=== PATIENT | female | born 2000 | race Hispanic/Latino ===

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

== ENCOUNTER 2022-02-24 19:23 | Emergency (ER) | payer SELFPAY ==
[2022-02-24] MEDS ORDERED: MORPHINE 4 MG/1 ML INJ IV ONE (19:46)
[2022-02-24] MEDS ORDERED: ONDANSETRON 4 MG/2 ML INJ IV ONE (19:46)
--- NOTE | 2022-02-24 19:49 | Emergency Department Report ---
ED General Adult HPI - General Chief complaint: Abdominal Pain Stated complaint: ABD PAIN Time Seen by Provider: 02/24/22 19:38 Source: patient, EMS Mode of arrival: Stretcher Limitations: No Limitations - History of Present Illness Initial comments: Patient presents with complaints of bilateral lower abdominal pain, sharp, radiating to her lower back, /, not worsened or relieved by anything. Endorses nausea, denies vomiting. Last BM was today and formed. Endorses flatulence. Denies dysuria, frequency, urgency. Endorses vaginal bleeding. Denies discharge. - Related Data Previous Rx's Medication Instructions Recorded Last Taken Type Ondansetron [Zofran Odt] 4 mg PO Q8H PRN #10 tab.rapdis 09/29/17 Unknown Rx Ibuprofen 400 mg PO Q6HR PRN #30 tablet 04/21/18 Unknown Rx Ondansetron [Zofran Odt] 4 mg PO Q8HR PRN #20 tab.rapdis 04/21/18 Unknown Rx Acetaminophen/Codeine [Tylenol 1 tab PO Q6H PRN 3 Days #12 tab 02/24/22 Unknown Rx /Codeine # 3 tab] Ciprofloxacin HCl 1 tab PO BID 7 Days #14 tab 02/24/22 Unknown Rx Metoclopramide [Reglan] 10 mg PO QID PRN #30 tablet 02/24/22 Unknown Rx Allergies Allergy/AdvReac Type Severity Reaction Status Date / Time Penicillins Allergy Hives Verified 02/24/22 19:28 ED Review of Systems ROS: Stated complaint: ABD PAIN Other details as noted in HPI Comment: All other systems reviewed and negative Constitutional: denies: chills, fever ED Past Medical Hx - Past Medical History Hx Diabetes: No Hx Renal Disease: No Hx Sickle Cell Disease: No Hx Seizures: No Hx Asthma: Yes Hx HIV: No - Social History Smoking Status: Never Smoker Substance Use Type: None - Medications Home Medications: Home Medications Medication Instructions Recorded Confirmed Last Taken Type Ondansetron [Zofran Odt] 4 mg PO Q8H PRN #10 tab.rapdis 09/29/17 Unknown Rx Ibuprofen 400 mg PO Q6HR PRN #30 tablet 04/21/18 Unknown Rx Ondansetron [Zofran Odt] 4 mg PO Q8HR PRN #20 tab.rapdis 04/21/18 Unknown Rx Acetaminophen/Codeine [Tylenol 1 tab PO Q6H PRN 3 Days #12 tab 02/24/22 Unknown Rx /Codeine # 3 tab] Ciprofloxacin HCl 1 tab PO BID 7 Days #14 tab 02/24/22 Unknown Rx Metoclopramide [Reglan] 10 mg PO QID PRN #30 tablet 02/24/22 Unknown Rx ED Physical Exam - General Limitations: No Limitations General appearance: alert, in no apparent distress - Head Head exam: Present: atraumatic, normocephalic - Eye Eye exam: Present: PERRL, EOMI - ENT ENT exam: Present: mucous membranes moist, other (airway patent) - Neck Neck exam: Present: other (supple; no JVD) - Respiratory Respiratory exam: Present: other (good air entry, nml I:E, CTAB, no use of GAVINO) - Cardiovascular Cardiovascular Exam: Present: regular rate. Absent: rubs, gallop - GI/Abdominal GI/Abdominal exam: Present: soft, normal bowel sounds, other (tender to palpation in RLQW, LLQ, suprapubic region; no rebound tenderness or involuntary guarding). Absent: distended - Extremities Exam Extremities exam: Present: full ROM. Absent: tenderness - Back Exam Back exam: Present: full ROM. Absent: CVA tenderness (R), CVA tenderness (L) - Neurological Exam Neurological exam: Present: alert, oriented X3, CN II-XII intact. Absent: motor sensory deficit - Skin Skin exam: Present: warm, normal color ED Course Vital Signs 02/24/22 02/24/22 19:25 20:27 Temperature 98 F 98.9 F Pulse Rate 83 60 Respiratory 18 18 Rate Blood Pressure 107/61 Blood Pressure 110/66 [Left] O2 Sat by Pulse 100 100 Oximetry ED Medical Decision Making - Lab Data Result diagrams: 02/24/22 20:05 02/24/22 20:05 Laboratory Tests 02/24/22 02/24/22 02/24/22 20:05 20:05 20:05 WBC 17.2 H RBC 4.35 Hgb 12.7 Hct 37.7 MCV 87 MCH 29 MCHC 34 RDW 15.3 H Plt Count 217 Lymph % (Auto) 8.9 L [place] % (Auto) 5.0 Eos % (Auto) 0.6 Baso % (Auto) 0.4 Lymph # (Auto) 1.5 [place] # (Auto) 0.9 H Eos # (Auto) 0.1 Baso # (Auto) 0.1 Seg Neutrophils % 85.1 H Seg Neutrophils # 14.6 H Sodium 140 Potassium 3.5 L Chloride 109.1 H Carbon Dioxide 19 L Anion Gap 15 BUN 7 Creatinine 0.5 L Estimated GFR > 60 BUN/Creatinine Ratio 14 Glucose 139 H Calcium 9.0 Total Bilirubin 0.20 AST 9 ALT 8 Alkaline Phosphatase 83 Total Protein 6.8 Albumin 4.2 Albumin/Globulin Ratio 1.6 Lipase 20 HCG, Qual Negative Urine Color Urine Turbidity Urine pH Ur Specific [place] Urine Protein Urine Glucose (UA) Urine Ketones Urine Blood Urine Nitrite Urine Bilirubin Urine Urobilinogen Ur Leukocyte Esterase Urine WBC (Auto) Urine RBC (Auto) U Epithel Cells (Auto) Urine Mucus Urine HCG, Qual 02/24/22 20:32 WBC RBC Hgb Hct MCV MCH MCHC RDW Plt Count Lymph % (Auto) [place] % (Auto) Eos % (Auto) Baso % (Auto) Lymph # (Auto) [place] # (Auto) Eos # (Auto) Baso # (Auto) Seg Neutrophils % Seg Neutrophils # Sodium Potassium Chloride Carbon Dioxide Anion Gap BUN Creatinine Estimated GFR BUN/Creatinine Ratio Glucose Calcium Total Bilirubin AST ALT Alkaline Phosphatase Total Protein Albumin Albumin/Globulin Ratio Lipase HCG, Qual Urine Color Yellow Urine Turbidity Slightly-cloudy Urine pH 7.0 Ur Specific [place] 1.017 Urine Protein 30 mg/dl Urine Glucose (UA) Neg Urine Ketones 20 Urine Blood Lg Urine Nitrite Neg Urine Bilirubin Neg Urine Urobilinogen < 2.0 Ur Leukocyte Esterase Tr Urine WBC (Auto) 24.0 H Urine RBC (Auto) > 182.0 U Epithel Cells (Auto) 8.0 Urine Mucus Few Urine HCG, Qual Cancelled CT abd/pelvis: no acute intra-abdominal process Critical care attestation.: If time is entered above; I have spent that time in minutes in the direct care of this critically ill patient, excluding procedure time. ED Disposition Clinical Impression: Urinary tract infection Disposition: 01 HOME / SELF CARE / HOMELESS Is pt being admited?: No Does the pt Need Aspirin: No Condition: Stable Instructions: Abdominal Pain (ED), Urinary Tract Infection, Adult, [id number] Additional Instructions: Follow up with your regular doctor within 2 - 4 days. Return to the ER if your symptoms worsen or do not improve. Prescriptions: Ciprofloxacin HCl 1 tab PO BID 7 Days #14 tab Metoclopramide [Reglan] 10 mg PO QID PRN #30 tablet PRN Reason: Nausea Acetaminophen/Codeine [Tylenol /Codeine # 3 tab] 1 tab PO Q6H PRN 3 Days #12 tab PRN Reason: Pain , Severe (7-10) Referrals: ADRIEL CHICAS MD [Primary Care Provider] - 3-5 Days Time of Disposition: 22:41
[2022-02-24 20:32] VITALS: BP 107/61
[2022-02-24 20:32] LABS: Basophils # (Auto) 0.1 K/mm3 (0.0-0.1); Basophils % (Auto) 0.4 % (0.0-1.8); Eosinophils # (Auto) 0.1 K/mm3 (0.0-0.4); Eosinophils % (Auto) 0.6 % (0.0-4.3); Hematocrit 37.7 % (30.3-42.9); Hemoglobin 12.7 gm/dl (10.1-14.3); Lymphocytes # (Auto) 1.5 K/mm3 (1.2-5.4); Lymphocytes % (Auto) 8.9 % (13.4-35.0); Mean Corpuscular HGB Conc 34 % (30-34); Mean Corpuscular Volume 87 fl (79-97); Monocytes # (Auto) 0.9 K/mm3 (0.0-0.8); Platelet Count 217 K/mm3 (140-440); Red Blood Count 4.35 M/mm3 (3.65-5.03); Red Cell Distribution Width 15.3 % (13.2-15.2)
[2022-02-24 20:43] LABS: Alanine Aminotransferase 8 units/L (7-56); Albumin 4.2 g/dL (3.9-5); Blood Urea Nitrogen 7 mg/dL (7-17); Hemolysis Index 2
[2022-02-24 20:47] LABS: Bilirubin,Urine NEG (Negative); Blood,Urine LG (Negative); Color,Urine Yellow (Yellow); Urobilinogen,Urine < 2.0 mg/dL (<2.0)
[2022-02-24 20:49] LABS: Mucus,Urine FEW /HPF
[2022-02-24 20:51] LABS: RBC,Urine > 182.0 /HPF (0.0-6.0)
[2022-02-24 20:54] LABS: BUN/Creatinine Ratio 14
--- NOTE | 2022-02-24 22:35 | Cat Scan Report ---
CT ABDOMEN AND PELVIS WITH CONTRAST INDICATION / CLINICAL INFORMATION: Bi-Lateral lower abd pain that radiates around to back. TECHNIQUE: Axial CT images were obtained through the abdomen and pelvis after 100 cc of Omnipaque [address] scans at this location are performed using CT dose reduction for ALARA by means of automated exposure control. COMPARISON: 09/29/2017 FINDINGS: LOWER CHEST: No significant abnormality. AORTA / ARTERIES: No significant abnormality. IVC / VEINS: No significant abnormality. LYMPH NODES: No significant adenopathy. COLON: No significant abnormality. APPENDIX: No significant abnormality. STOMACH / SMALL BOWEL: No significant abnormality. PERITONEUM: No free fluid. No free air. No fluid collection. LIVER: No significant abnormality. GALLBLADDER: No significant abnormality. BILE DUCTS: No significant abnormality. PANCREAS: No significant abnormality. SPLEEN: No significant abnormality. ADRENALS: No significant abnormality. RIGHT KIDNEY / URETER: No significant abnormality. LEFT KIDNEY / URETER: No significant abnormality. URINARY BLADDER: No significant abnormality. REPRODUCTIVE ORGANS: No significant abnormality. SKELETAL SYSTEM: No significant abnormality. ADDITIONAL FINDINGS: None. IMPRESSION: 1. No CT findings to explain symptomatology. Signer Name: Aubrey Pierce DO Signed: 02/24/2022 10:31 PM Workstation Name: [id number]
[2022-02-24] MEDS ORDERED: SODIUM CHLORIDE 0.9% 1000 ML 1,000 ML IV ONE (22:38)
[2022-02-24] MEDS ORDERED: HYDROmorphone 1 MG/1 ML INJ IV ONE (22:39)
[2022-02-24] MEDS ORDERED: METOCLOPRAMIDE 10 MG/2 ML INJ IV ONE (22:51)
[2022-02-24] MEDS ORDERED: HYDROmorphone 0.5 MG/0.5 ML INJ ONE (22:58)
== END 2022-02-25 02:29 | disposition home or self-care (01) ==
LOC: ED 19:23
DX: N39.0 Urinary tract infection, site not specified (principal); J45.909 Unspecified asthma, uncomplicated; Z88.0 Allergy status to penicillin
CPT/HCPCS: 36415; 74177; 80053; 81001; 83690; 84703; 85025; 87086; 96361; 96365; 96375; 99284; J1170; J1956; J2270; J2405; J2765; J7030; Q9967

== ENCOUNTER 2022-04-27 13:30 | Emergency (ER) | payer OTHER ==
[2022-04-27 13:52] VITALS: BP 119/67
== END 2022-04-28 09:48 | disposition left against medical advice (07) ==
LOC: ED 13:30
DX: R10.9 Unspecified abdominal pain (principal); Z53.21 Procedure and treatment not carried out due to patient leaving prior to being seen by health care provider